=== PATIENT | male | born 1985 | race Caucasian/White ===

== ENCOUNTER 2020-05-03 19:20 | Emergency (ER) | payer OTHER ==
[~2020-05-03] VITALS: Ht 188 cm; Wt 100.0 kg
[~2020-05-03 19:20] MED LIST: NO HOME MEDS
--- NOTE | 2020-05-03 19:30 | NUR ---
straight back from triage. Not able to get a triage BP as he is dancing in pain.
--- NOTE | 2020-05-03 19:36 | NUR ---
pt removed dressing in triage.
[2020-05-03] MEDS ORDERED: fentaNYL/PF 50MCG/1 ML 2ML syringe IV ONE ×2 (19:40→21:10)
[2020-05-03] MEDS ORDERED: MIDAZolam 5mg/ml 2ml vial IV ONE (20:10)
--- NOTE | 2020-05-03 21:08 | NUR ---
PT CONTINUES TO WALK AROUND ROOM, MOANING, HAS REMOVED ALL DRESSING AND CREAM AND CONTINUES TO RINSE ARM UNDER SINK DESPITE EDUCATION. DR. ANDRES AT BEDSIDE, AWARE. MD GILMORE'S PT TO RINSE ARM UNDER SINK.
[2020-05-03] MEDS ORDERED: bacitracin 15gm ointment TP ONE (21:10)
[2020-05-03] MEDS ORDERED: SILV20CR13 TOP (21:18)
[2020-05-03] MEDS ORDERED: HYDR-3965 PO (21:18)
[2020-05-03 22:05] VITALS: BP 138/97
[2020-05-04] MEDS ORDERED: silver sulfadiazine cream 400gm jar TP SCH (08:00)
== END 2020-05-03 22:08 | disposition home or self-care (01) ==
LOC: ER 19:21
DX: T22.00XA Burn of unspecified degree of shoulder and upper limb, except wrist and hand, unspecified site, initial encounter (principal); Z79.899 Other long term (current) drug therapy; X08.8XXA Exposure to other specified smoke, fire and flames, initial encounter; Y93.89 Activity, other specified; Y92.89 Other specified places as the place of occurrence of the external cause; Y99.8 Other external cause status
CPT/HCPCS: 16020; 96374; 96375; 96376; 99284; J2250; J3010